=== PATIENT | female | born 1945 | race Caucasian/White ===

== ENCOUNTER 2017-08-04 12:38 | Outpatient (CLI) | payer MEDICARE, OTHER ==
[2017-08-04 14:33] LABS: Bilirubin Negative (Negative); Blood, Urine Negative (Negative); Clarity CLOUDY (Clear); Glucose, Urine (Dipstick) Negative (Negative); Leukocyte Small (Negative); Nitrite Negative (Negative); Protein, Urine (Dipstick) Negative (Neg-Trace); Specific Gravity, Urine 1.012 (1.002-1.036); Urobilinogen 0.2 mg/dL (0.2-1.0); pH, Urine 7.5 (5.0-9.0)
[2017-08-04 14:44] LABS: Bacteria/HPF None Seen HPF (None Seen); Hyaline Casts/LPF 0-3 HYALINE CAST LPF (0-3 Hyaline); Pathc Cast-AUWi Flag 0.13 (0-2.49); RBC/HPF 0-3 HPF (0-3); Squamous Epithelial 0-3 HPF (0-3)
[2017-08-04 14:55] LABS: Crystals/HPF None Seen HPF (Negative)
--- NOTE | 2017-08-04 20:43 | EKG ---
Test Reason : Blood Pressure : / mmHG Vent. Rate : 062 BPM Atrial Rate : 062 BPM P-R Int : 150 ms QRS Dur : 076 ms QT Int : 428 ms P-R-T Axes : 048 053 051 degrees QTc Int : 434 ms Normal sinus rhythm Normal ECG No previous ECGs available Confirmed by FRANCK DALE, DR. Mendoza ([id number]) on 08/04/2017 8:43:02 PM Referred By: IERO Confirmed By:DR. Kelly JUÁREZ MD
== END 2017-08-04 12:39 | disposition home or self-care (01) ==
LOC: LABBT 12:38
PROVIDERS: ATTEND Orthopaedic Surgery
DX: Z01.818 Encounter for other preprocedural examination (principal); M17.11 Unilateral primary osteoarthritis, right knee
CPT/HCPCS: 81001; 93005; 93010

== ENCOUNTER 2017-08-12 09:38 | Outpatient (CLI) | payer MEDICARE, OTHER ==
[2017-08-12 10:19] LABS: #Eosinphils 0.1 thou/uL (0.0-0.7); #Lymphocytes 1.4 thou/uL (1.20-3.40); #Monocytes 0.5 thou/uL (0.11-0.59); #Neutrophils 3.6 thou/uL (1.40-6.50); %Basophils 0.4 % (0.0-1.0); %Eosinophils 1.6 % (0.0-10.0); %Lymphocytes 25.2 % (21.0-51.0); %Monocytes 8.2 % (0.0-10.0); %Neutrophils 64.6 % (42.0-75.0); Hemoglobin 14.1 g/dL (12.0-16.0); Mean Corpuscular HGB CONC 34.6 g/dL (32.0-36.0); Mean Corpuscular Hemoglobin 31.2 pg (27.0-31.0); Mean Corpuscular Volume 90.3 fl (81.0-99.0); Mean Platelet Volume 7.5 fL (7.4-10.4); Platelet Count 169 thou/uL (130-400); RBC Distribution Width 11.9 % (11.5-14.5); Red Blood Cell (RBC) Count 4.52 mill/uL (4.20-5.40); White Blood Cell (WBC) Count 5.6 thou/uL (4.8-10.8)
[2017-08-12 10:37] LABS: Anion Gap 14 mmol/L (10-20); BUN (Urea Nitrogen) 26 mg/dL (9.8-20.1); Calc. Creatinine Clearance 0 mL/min (70-130); Calcium 9.6 mg/dL (7.8-10.44); Carbon Dioxide 25 mmol/L (23-31); Chloride 105 mmol/L (98-107); Estimated GFR-MDRD 69; Glucose 110 mg/dL (83-110); Potassium 4.4 mmol/L (3.5-5.1); Sodium 140 mmol/L (136-145)
[2017-08-12 10:43] LABS: Prothrombin Time 12.9 SEC (12.0-14.7)
== END 2017-08-12 09:39 | disposition home or self-care (01) ==
LOC: LABBT 09:38
PROVIDERS: ATTEND Orthopaedic Surgery
DX: Z01.812 Encounter for preprocedural laboratory examination (principal); M17.11 Unilateral primary osteoarthritis, right knee
CPT/HCPCS: 80048; 85025; 85610; 86850; 86900; 86901; 87081

== ENCOUNTER 2017-08-17 05:38 | Day surgery (SDC) | payer MEDICARE, OTHER ==
[2017-08-04 12:38] VITALS: BMI 29.0
[2017-08-17] MEDS ORDERED: CEFAZOLIN/Water 2 GM/20 ML SYRINGE ONE (05:53)
[2017-08-17] MEDS ORDERED: Midazolam HCl 2 mg/2 ml Vial ONE (06:28)
[2017-08-17] MEDS ORDERED: Fentanyl 100 MCG/2 ML VIAL ONE ×2 (06:28→07:44)
[2017-08-17] MEDS ORDERED: Bupivacaine PF 0.5% 30 ML VIAL ONE (06:29)
[2017-08-17] MEDS ORDERED: HYDROcodone/Acetaminophen 10/325 mg Tablet PO PRN ×3 (07:24→09:54)
[2017-08-17] MEDS ORDERED: Acetaminophen 325 MG TAB PO PRN (07:24)
[2017-08-17] MEDS ORDERED: Promethazine HCl 25 MG/ML VIAL IM PRN ×2 (07:24→09:54)
[2017-08-17] MEDS ORDERED: Ondansetron HCl/PF 4 MG/2 ML Vial IVP PRN ×2 (07:24→09:54)
[2017-08-17] MEDS ORDERED: diphenhydrAMINE 25 MG CAP PO PRN (07:24)
[2017-08-17] MEDS ORDERED: Zolpidem Tartrate 5 MG TAB PO PRN ×2 (07:24→09:54)
[2017-08-17] MEDS ORDERED: traMADol HCl 50 MG TAB PO PRN ×3 (07:24→09:54)
--- NOTE | 2017-08-17 09:44 | OP ---
DATE OF PROCEDURE: 08/17/2017 PREOPERATIVE DIAGNOSIS: Right knee osteoarthrosis. POSTOPERATIVE DIAGNOSIS: Right knee osteoarthrosis. PROCEDURE PERFORMED: Right total knee replacement using Ricebook pinless navigation. SURGEON: Michael Funes M.D. PLASTIC CNC MACHINE OPERATOR: Rambo Melo PA-C. BLOOD LOSS: Minimal. COMPLICATIONS: None. IMPLANTS: To the right knee, Lula Triathlon total knee system, the femur is size 4 cruciate retai wei femur, we used size 3 universal tibial baseplate, we used a 3 x 9 mm CSX3 tibial bearing and an asymmetric 29 x 9 X3 patella. DISPOSITION: She did go to recovery room in stable condition. INDICATIONS: A 72-year-old female who has failed nonoperative treatment for her knee arthritis and h er pain and at this time, she wished to have surgery. PROCEDURE IN DETAIL: After all appropriate consent forms were explained and signed, the patient was t aken back to the Operating Room and at this time was given general anesthetic. Once the level of anes thesia was appropriate, a well-padded tourniquet was placed on the right leg and the leg was then pre pped and draped in standard surgical fashion. The limb was exsanguinated and tourniquet taken up to 3 00 mmHg. Midline incision was made with a 10 blade down through the skin and subcutaneous tissue. Bov ie electrocautery was used to coagulate any brisk venous bleeding. A new blade was used to make a med ial parapatellar arthrotomy. Small subperiosteal release was performed medially and excess fat pad wa s removed. The knee was flexed up to gain access to the femur. The femur was navigated and distal fem oral resection was made. Epicondylar access was used to align our sizing jig and this was pinned in p lace. We sized our femur to be a size 4 cruciate retaining femur, 4:1 cutting block was applied and p inned. Anterior and posterior chamfer cuts were then made. We navigated out our proximal tibia and ma de our proximal tibial resection. Spreaders were used to remove any posterior osteophytes off the bo k of the femur as well as remaining meniscal tissue. A long alignment yeyo was then used to achieve co rrect rotation of our tibial baseplate and a size 3 was chosen. This was pinned in place. We trialed the polyethylene and a 3 x 9 mm CSX3 polyethylene gave us full extension and good stability throughou t range of motion. Two towel clips and a saw were used to cut our patella. Three lug nuts were drille d and asymmetric 29 x 9 X3 patella was trialed which sat nicely in the trochlear groove. We then dril led our femur and punched our tibia. All components were removed. The knee was thoroughly irrigated a nd dried. Cement was mixed into the cement gun on the back table. Components were then placed. The kn ee was held out in full extension until the cement had dried. All excess bone cement was removed. Mu ltiple #2 Vicryl stitches as well as a Quill was used to close our extensor mechanism. 0 Quill follow ed by a running Monoderm was then used to close the skin. Surgicel glue was then used on the skin. On ce this had dried, soft tissue dressing was applied to the limb, tourniquet was let down, and the toe s pinked up nicely. The patient was then awakened and taken to the Recovery Room in stable condition . All counts were correct at the end of the case. The patient did receive preoperative IV antibiotics . The patient was injected with Exparel for postoperative pain relief.
[2017-08-17] MEDS ORDERED: Bupivacaine 0.5% 50 ML in Sodium Chloride 0.9% 50 ML NERVE BLCK SCH (09:54)
[2017-08-17] MEDS ORDERED: Ketorolac Tromethamine 30 MG/ML VIAL IVP PRN (09:54)
[2017-08-17] MEDS ORDERED: Fentanyl 100 MCG/2 ML VIAL IV PRN (09:55)
[2017-08-17] MEDS ORDERED: Ropivacaine 0.5% HCl/PF (150 MG/30 ML VIAL) ONE (10:28)
[2017-08-17] MEDS ORDERED: Bupivacaine/Epinephrine 0.25% 30 ML VIAL ONE (10:28)
[2017-08-17] MEDS ORDERED: Dexamethasone 20 MG/5 ML VIAL ONE (10:48)
[2017-08-17] MEDS ORDERED: ePHEDrine/0.9% NaCl/PF SYRINGE 50 mg/10 ml ONE (10:48)
[2017-08-17] MEDS ORDERED: PHENYLEPHRINE-NS 100 MCG/ML 10 ML SYRINGE ONE (10:48)
[2017-08-17] MEDS ORDERED: Lidocaine 1% PF 5 ML VIAL ONE (10:48)
[2017-08-17] MEDS ORDERED: PROPOFOL 200 MG/20 ML VIAL ONE (10:48)
[2017-08-17] MEDS ORDERED: Ondansetron HCl/PF 4 MG/2 ML Vial ONE (10:48)
[2017-08-17] MEDS: Sodium Chloride 0.9% 1,000 ML IV SCH ×3 (12:05→21:17)
[2017-08-17] MEDS: Aspirin 81 mg Enteric Coated Tablet PO SCH ×2 (12:05→21:22)
[2017-08-17] MEDS: CeleCOXIB 100 MG CAP PO SCH (12:05)
[2017-08-17] MEDS: Multivitamin W/ Minerals 1 TAB PO SCH (12:06)
[2017-08-17] MEDS: Ferrous Gluconate 324 MG TAB PO SCH ×2 (12:06→21:22)
[2017-08-17] MEDS: Senokot S 8.6-50 MG TAB PO SCH ×2 (12:07→21:23)
[2017-08-17] MEDS: Fish Oil 1,000 MG CAP PO SCH (14:34)
[2017-08-17] MEDS: CEFAZOLIN/Water 2 GM/20 ML SYRINGE SLOW IVP SCH ×2 (15:49→21:23)
[2017-08-17] MEDS ORDERED: Vancomycin HCl 1 GM in Premix Bag 1 BAG IVPB SCH (18:00)
[2017-08-17] MEDS ORDERED: Lisinopril 20 MG TAB PO SCH (21:00)
[2017-08-17] MEDS ORDERED: Atorvastatin Calcium 10 MG TAB PO SCH (21:00)
--- NOTE | 2017-08-17 22:36 | PDOC.PN ---
- Subjective Encounter Start Date: 08/17/17 Encounter Start Time: 12:00 Patient seen and examined. Consult for med mngt. No CP/SOB/Palpitations - Objective MAR Reviewed: Yes Vital Signs & Weight: Vital Signs (12 hours) Temp Pulse Resp BP BP Pulse Ox 08/17/17 21:22 110/70 08/17/17 11:47 97.8 F 89 18 99 08/17/17 11:05 97.8 F 89 18 117/69 99 Weight Weight 164 lb I&O: 08/16/17 08/17/17 08/18/17 06:59 06:59 06:59 Intake Total 1920 Output Total 1800 Balance 120 Result Diagrams: 08/18/17 05:03 EKG Reviewed by me: Yes (SR) Phys Exam - Physical Examination Constitutional: NAD Respiratory: no wheezing, no rhonchi Cardiovascular: RRR, no rub Gastrointestinal: soft, positive bowel sounds Musculoskeletal: no edema Dx/Plan - Plan DVT proph w/SCDs IMPRESSION: 1. HTN 2. HLD 3. CKD 2 PLAN: * Cont current home meds including Lisinopril/Statins * Will follow. Thank you for this consultation Laboratory Tests 08/12/17 09:55 BUN 26 H Creatinine 0.82 Estimated GFR (MDRD) 69 Review of Systems - Review of Systems Respiratory: negative: Cough, Dry, Shortness of Breath, Hemoptysis, SOB with Excertion, Pleuritic Pain, Sputum, Wheezing Cardiovascular: negative: chest pain, palpitations, orthopnea, paroxysmal nocturnal dyspnea, edema, light headedness, other - Medications/Allergies Allergies/Adverse Reactions: Allergies Allergy/AdvReac Type Severity Reaction Status Date / Time No Known Allergies Allergy Verified 08/04/17 12:38 Medications: Current Medications Acetaminophen (Tylenol) 650 mg PO Q4H PRN PRN Reason: [place]/ T > 101F; Mild Pain (1-3) Hydrocodone Bitart/Acetaminophen (Anton 10/325) 1 tab PO Q4H PRN PRN Reason: Pain (1-3) Hydrocodone Bitart/Acetaminophen (Anton 10/325) 2 tab PO Q4H PRN PRN Reason: PAIN (4-6) Aspirin (Ecotrin) 81 mg PO BID [facility] Last Admin: 08/17/17 21:22 Dose: 81 mg Atorvastatin Calcium (Lipitor) 10 mg PO HS [facility] Last Admin: 08/17/17 21:23 Dose: 10 mg Celecoxib (Celebrex) 200 mg PO DAILY [facility] Last Admin: 08/17/17 12:05 Dose: Not Given Cholecalciferol (Vitamin D3) 1,000 units PO DAILY [facility] Last Admin: 08/17/17 14:34 Dose: 1,000 units Diphenhydramine HCl (Benadryl) 25 mg PO Q6H PRN PRN Reason: Itching Fentanyl (Sublimaze) 50 mcg IV Q1H PRN PRN Reason: BREAKTHROUGH PAIN Ferrous Gluconate (Fergon) 324 mg PO BID [facility] Last Admin: 08/17/17 21:22 Dose: 324 mg Fish Oil (Fish Oil) 2,000 mg PO DAILY [facility] Last Admin: 08/17/17 14:34 Dose: 2,000 mg Sodium Chloride (Normal Saline 0.9%) 1,000 mls @ 100 mls/hr IV .Q10H [facility] Last Admin: 08/17/17 21:17 Dose: 1,000 mls Bupivacaine HCl 50 ml/ Sodium (Chloride) 100 mls @ 0 mls/hr NERVE BLCK INF [facility] PRN Reason: As Directed Iron/Minerals/Multivitamins (Theragran M) 1 tab PO DAILY [facility] Last Admin: 08/17/17 12:06 Dose: Not Given Ketorolac Tromethamine (Toradol) 15 mg IVP Q6H PRN PRN Reason: Moderate Pain (4-6) Stop: 08/20/17 09:55 Last Admin: 08/17/17 14:33 Dose: 15 mg Lisinopril (Zestril) 40 mg PO [facility] Last Admin: 08/17/17 21:22 Dose: 40 mg Ondansetron HCl (Zofran) 4 mg IVP Q6H PRN PRN Reason: Nausea/Vomiting Promethazine HCl (Phenergan) 12.5 mg IM Q4H PRN PRN Reason: Nausea Senna/Docusate Sodium (Senokot S) 2 tab PO BID [facility] Last Admin: 08/17/17 21:23 Dose: 2 tab Sodium Chloride (Flush - Normal Saline) 10 ml IVF PRN PRN PRN Reason: Saline Flush Tramadol HCl (Ultram) 50 mg PO Q6H PRN PRN Reason: Mild Pain (1-3) Tramadol HCl (Ultram) 100 mg PO Q6H PRN PRN Reason: Moderate Pain 4-6 Zolpidem Tartrate (Ambien) 5 mg PO HSPRN PRN PRN Reason: Insomnia
[2017-08-18 05:39] LABS: Hemoglobin 11.6 g/dL (12.0-16.0); Mean Corpuscular HGB CONC 34.2 g/dL (32.0-36.0); Mean Corpuscular Hemoglobin 30.9 pg (27.0-31.0); Mean Corpuscular Volume 90.3 fl (81.0-99.0); Mean Platelet Volume 7.5 fL (7.4-10.4); Platelet Count 149 thou/uL (130-400); Red Blood Cell (RBC) Count 3.76 mill/uL (4.20-5.40)
[2017-08-18] MEDS: HYDROcodone/Acetaminophen 10/325 mg Tablet PO PRN ×2 (07:03→15:40)
[2017-08-18 08:32] VITALS: BP 109/69; TEMP 97.7
[2017-08-18] MEDS: Aspirin 81 mg Enteric Coated Tablet PO SCH (08:46)
[2017-08-18] MEDS: CeleCOXIB 100 MG CAP PO SCH (08:46)
[2017-08-18] MEDS: Multivitamin W/ Minerals 1 TAB PO SCH (08:47)
[2017-08-18] MEDS: Fish Oil 1,000 MG CAP PO SCH (08:47)
[2017-08-18] MEDS: Ferrous Gluconate 324 MG TAB PO SCH (08:47)
[2017-08-18] MEDS: Senokot S 8.6-50 MG TAB PO SCH (08:48)
[2017-08-18] MEDS ORDERED: Ropivacaine 0.2% 550 ML 550 ML NERVE BLCK SCH (10:42)
[2017-08-18] MEDS: Sodium Chloride 0.9% 1,000 ML IV SCH (15:38)
== END 2017-08-18 15:15 | disposition home or self-care (01) ==
LOC: SDC 05:38 → SJJU 07:24 → SDC 08-18 15:15
PROVIDERS: ATTEND Orthopaedic Surgery
PROC: 0SRC0J9 Replacement of Right Knee Joint with Synthetic Substitute, Cemented, Open Approach (ICD-10-PCS; principal; 2017-08-17)
DX: M17.11 Unilateral primary osteoarthritis, right knee (principal); I10 Essential (primary) hypertension; E78.5 Hyperlipidemia, unspecified; J45.909 Unspecified asthma, uncomplicated; G47.30 Sleep apnea, unspecified; M19.90 Unspecified osteoarthritis, unspecified site; E66.9 Obesity, unspecified; Z68.29 Body mass index [BMI] 29.0-29.9, adult; Z79.899 Other long term (current) drug therapy
CPT/HCPCS: 27447; 85027; 96374; 97116 ×2; 97139; 97150; 97530 ×2; A4306; C1713; C1776; G8978; G8979; 36415; J1100; J1885; J2001; J2250; J2405; J2704; J2795; J3010; J3370; J3490; J7050; S0020